=== PATIENT | male | born 1965 | race Two or more races ===

== ENCOUNTER 2019-11-15 08:32 | Emergency (ER) | payer SELFPAY ==
[~2019-11-15] VITALS: Ht 175.3 cm; Wt 112.6 kg
[2019-11-15 08:36] VITALS: Ht 175.3 cm; Wt 112.6 kg
[2019-11-15 11:37] VITALS: BP 123/78
[2019-11-16] MEDS ORDERED: FORTAMET1000 MG PO (19:31)
== END 2019-11-15 11:37 | disposition home or self-care (01) ==
LOC: ED 08:32
DX: R50.9 Fever, unspecified (principal); R51 Headache
CPT/HCPCS: 87804; Q0092

== ENCOUNTER 2019-11-16 17:09 | Inpatient (IN) | payer SELFPAY ==
[~2019-11-16] VITALS: Ht 175.3 cm; Wt 111.1 kg
[2019-11-16 17:31] VITALS: Ht 175.3 cm; Wt 111.1 kg
[2019-11-16 18:27] LABS: BASOPHIL % 0.1 % (0-2); PLATELET COUNT 276 x10^3mcL (130-400); RED CELL DISTRIBUTION WIDTH 13.5 % (11.5-14.5)
[2019-11-16 18:48] LABS: CALCIUM 9.4 mg/dL (8.5-10.1); CARBON DIOXIDE 25.4 mmol/L (21-32); CHLORIDE SERUM 96 mmol/L (98-107); GFR1 > 60 mL/min; GLUCOSE SERUM 269 mg/dL (74-106); POTASSIUM SERUM 3.9 mmol/L (3.5-5.1); SODIUM SERUM 132 mmol/L (136-145)
[2019-11-16 18:52] LABS: ALKALINE PHOSPHATASE 74 U/L (46-116); ALT/SGPT 75 U/L (16-63); AST/SGOT 55 U/L (15-37); BILIRUBIN TOTAL 0.4 mg/dL (0.20-1.00); TOTAL PROTEIN, SERUM 7.7 g/dL (6.4-8.2)
[2019-11-16 18:53] LABS: ALBUMIN 3.3 g/dL (3.4-5.0)
[2019-11-16 19:03] LABS: C REACTIVE PROTEIN 16.3 mg/dL (<=0.9)
[2019-11-16] MEDS ORDERED: FORTAMET1000 MG PO (19:31)
[2019-11-16 20:06] LABS: FREE T4 1.32 ng/dL (0.76-1.46); FREE THYROXINE INDEX 2.8 ug/dL (1.4-4.5); T4(THYROXINE) 7.6 ug/dL (4.7-13.3)
[2019-11-16 20:07] LABS: T3 TOTAL 0.86 ng/mL
[2019-11-16 20:21] LABS: CHOLESTEROL/HDL RATIO 3.7
[2019-11-16 20:41] VITALS: BP 152/109
[2019-11-17 06:05] VITALS: BP 151/96
[2019-11-17 07:18] LABS: BASOPHIL % 0.1 % (0-2); PLATELET COUNT 281 x10^3mcL (130-400); RED CELL DISTRIBUTION WIDTH 13.8 % (11.5-14.5)
[2019-11-17 07:26] LABS: CALCIUM 8.9 mg/dL (8.5-10.1); CARBON DIOXIDE 26.1 mmol/L (21-32); CHLORIDE SERUM 97 mmol/L (98-107); CREATININE SERUM 0.9 mg/dL (0.7-1.3); GFR1 > 60 mL/min; GLUCOSE SERUM 199 mg/dL (74-106); POTASSIUM SERUM 3.8 mmol/L (3.5-5.1); SODIUM SERUM 134 mmol/L (136-145)
[2019-11-17 09:00] VITALS: BP 148/90
[2019-11-17 17:43] VITALS: BP 154/91
[2019-11-17 19:07] LABS: UA SPECIFIC GRAVITY 1.025 (1.005-1.035); microscopic required? YES; urine erythrocyte TRACE (NEGATIVE)
[2019-11-18 05:59] VITALS: BP 150/93
[2019-11-18 06:56] LABS: BASOPHIL % 0.1 % (0-2); PLATELET COUNT 357 x10^3mcL (130-400); RED CELL DISTRIBUTION WIDTH 13.6 % (11.5-14.5)
[2019-11-18 07:07] LABS: CALCIUM 9.2 mg/dL (8.5-10.1); CARBON DIOXIDE 30.2 mmol/L (21-32); CHLORIDE SERUM 95 mmol/L (98-107); CREATININE SERUM 0.9 mg/dL (0.7-1.3); GFR1 > 60 mL/min; GLUCOSE SERUM 235 mg/dL (74-106); PHOSPHOROUS 2.8 mg/dL (2.5-4.9); POTASSIUM SERUM 3.9 mmol/L (3.5-5.1); SODIUM SERUM 134 mmol/L (136-145)
[2019-11-18 09:00] VITALS: BP 100/46
[2019-11-18 12:00] VITALS: BP 143/96
[2019-11-18 20:58] VITALS: BP 141/93
[2019-11-19 08:02] LABS: ALKALINE PHOSPHATASE 75 U/L (46-116); ALT/SGPT 130 U/L (16-63); AST/SGOT 100 U/L (15-37); BILIRUBIN TOTAL 0.4 mg/dL (0.20-1.00); CALCIUM 9.3 mg/dL (8.5-10.1); CARBON DIOXIDE 31.7 mmol/L (21-32); CHLORIDE SERUM 97 mmol/L (98-107); CREATININE SERUM 0.8 mg/dL (0.7-1.3); GFR1 > 60 mL/min; GLUCOSE SERUM 221 mg/dL (74-106); MAGNESIUM 2.1 mg/dL (1.8-2.4); PHOSPHOROUS 2.8 mg/dL (2.5-4.9); POTASSIUM SERUM 3.8 mmol/L (3.5-5.1); SODIUM SERUM 137 mmol/L (136-145); TOTAL PROTEIN, SERUM 7.4 g/dL (6.4-8.2)
[2019-11-19 08:04] LABS: ALBUMIN 2.7 g/dL (3.4-5.0)
[2019-11-19 09:04] LABS: PLATELET COUNT 407 x10^3mcL (130-400)
[2019-11-19 09:05] LABS: BASOPHIL % 0.2 % (0-2)
[2019-11-19 09:39] VITALS: BP 147/93
[2019-11-19 12:00] VITALS: BP 137/80
[2019-11-19 13:18] VITALS: BP 147/93
[2019-11-19 21:40] VITALS: BP 140/85
[2019-11-20 05:39] VITALS: BP 140/96
[2019-11-20 06:30] LABS: BASOPHIL % 0.4 % (0-2); RED CELL DISTRIBUTION WIDTH 13.7 % (11.5-14.5)
[2019-11-20 06:37] LABS: PLATELET COUNT 462 x10^3mcL (130-400)
[2019-11-20 07:03] LABS: ALKALINE PHOSPHATASE 77 U/L (46-116); ALT/SGPT 127 U/L (16-63); AST/SGOT 62 U/L (15-37); BILIRUBIN TOTAL 0.41 mg/dL (0.20-1.00); CALCIUM 9.1 mg/dL (8.5-10.1); CARBON DIOXIDE 31.5 mmol/L (21-32); CHLORIDE SERUM 99 mmol/L (98-107); CREATININE SERUM 0.8 mg/dL (0.7-1.3); GFR1 > 60 mL/min; GLUCOSE SERUM 195 mg/dL (74-106); MAGNESIUM 2.1 mg/dL (1.8-2.4); PHOSPHOROUS 3.1 mg/dL (2.5-4.9); POTASSIUM SERUM 3.5 mmol/L (3.5-5.1); SODIUM SERUM 137 mmol/L (136-145)
[2019-11-20 07:08] LABS: ALBUMIN 2.5 g/dL (3.4-5.0)
[2019-11-20 08:28] VITALS: BP 152/106
[2019-11-20 18:13] VITALS: BP 126/85
[2019-11-20 19:30] VITALS: BP 128/75
[2019-11-21 06:39] VITALS: BP 141/72
[2019-11-21 06:50] LABS: BASOPHIL % 0.4 % (0-2); RED CELL DISTRIBUTION WIDTH 13.9 % (11.5-14.5)
[2019-11-21 06:57] LABS: PLATELET COUNT 515 x10^3mcL (130-400)
[2019-11-21 07:41] LABS: ALKALINE PHOSPHATASE 83 U/L (46-116); ALT/SGPT 168 U/L (16-63); AST/SGOT 74 U/L (15-37); BILIRUBIN TOTAL 0.4 mg/dL (0.20-1.00); CALCIUM 9.5 mg/dL (8.5-10.1); CHLORIDE SERUM 99 mmol/L (98-107); CREATININE SERUM 0.9 mg/dL (0.7-1.3); GFR1 > 60 mL/min; GLUCOSE SERUM 94 mg/dL (74-106); MAGNESIUM 2.1 mg/dL (1.8-2.4); PHOSPHOROUS 3.5 mg/dL (2.5-4.9); POTASSIUM SERUM 3.3 mmol/L (3.5-5.1); SODIUM SERUM 140 mmol/L (136-145); TOTAL PROTEIN, SERUM 7.4 g/dL (6.4-8.2)
[2019-11-21 07:55] LABS: ALBUMIN 2.7 g/dL (3.4-5.0)
[2019-11-21 08:04] VITALS: BP 132/88
[2019-11-21 18:00] VITALS: BP 105/69
[2019-11-21 21:30] VITALS: BP 140/86
[2019-11-22 05:30] VITALS: BP 149/65
[2019-11-22 07:13] LABS: BASOPHIL % 0.4 % (0-2); RED CELL DISTRIBUTION WIDTH 13.3 % (11.5-14.5)
[2019-11-22 07:29] LABS: ALKALINE PHOSPHATASE 95 U/L (46-116); ALT/SGPT 185 U/L (16-63); AST/SGOT 78 U/L (15-37); BILIRUBIN TOTAL 0.39 mg/dL (0.20-1.00); CALCIUM 9.5 mg/dL (8.5-10.1); CARBON DIOXIDE 32.1 mmol/L (21-32); CHLORIDE SERUM 100 mmol/L (98-107); CREATININE SERUM 0.9 mg/dL (0.7-1.3); GFR1 > 60 mL/min; GLUCOSE SERUM 224 mg/dL (74-106); PHOSPHOROUS 2.8 mg/dL (2.5-4.9); POTASSIUM SERUM 4.1 mmol/L (3.5-5.1); SODIUM SERUM 138 mmol/L (136-145); TOTAL PROTEIN, SERUM 7.3 g/dL (6.4-8.2)
[2019-11-22 07:51] VITALS: BP 142/90
[2019-11-22 07:59] LABS: ALBUMIN 2.7 g/dL (3.4-5.0)
[2019-11-22 08:28] VITALS: BP 142/90
[2019-11-22 10:10] LABS: PLATELET COUNT 580 x10^3mcL (130-400)
[2019-11-22 13:03] VITALS: BP 140/61
[2019-11-22 18:13] VITALS: BP 141/80
[2019-11-22 21:13] VITALS: BP 134/96
[2019-11-23 06:00] VITALS: BP 119/87
[2019-11-23 06:19] LABS: BASOPHIL % 0.5 % (0-2); RED CELL DISTRIBUTION WIDTH 12.3 % (11.5-14.5)
[2019-11-23 06:36] LABS: ALKALINE PHOSPHATASE 82 U/L (46-116); ALT/SGPT 216 U/L (16-63); AST/SGOT 106 U/L (15-37); BILIRUBIN TOTAL 0.3 mg/dL (0.20-1.00); CALCIUM 9.3 mg/dL (8.5-10.1); CARBON DIOXIDE 31.7 mmol/L (21-32); CHLORIDE SERUM 101 mmol/L (98-107); GFR1 > 60 mL/min; GLUCOSE SERUM 184 mg/dL (74-106); PHOSPHOROUS 3.1 mg/dL (2.5-4.9); POTASSIUM SERUM 4.3 mmol/L (3.5-5.1); SODIUM SERUM 140 mmol/L (136-145)
[2019-11-23 06:39] LABS: ALBUMIN 2.7 g/dL (3.4-5.0)
[2019-11-23 06:51] LABS: PLATELET COUNT 590 x10^3mcL (130-400)
[2019-11-23 08:00] VITALS: BP 147/100
[2019-11-23 12:30] VITALS: BP 160/92
[2019-11-23 20:56] VITALS: BP 142/91
[2019-11-24 06:13] VITALS: BP 143/93
[2019-11-24 06:36] LABS: ALKALINE PHOSPHATASE 91 U/L (46-116); ALT/SGPT 275 U/L (16-63); AST/SGOT 112 U/L (15-37); BILIRUBIN TOTAL 0.34 mg/dL (0.20-1.00); CALCIUM 9.6 mg/dL (8.5-10.1); CARBON DIOXIDE 32.1 mmol/L (21-32); CHLORIDE SERUM 102 mmol/L (98-107); GFR1 > 60 mL/min; GLUCOSE SERUM 214 mg/dL (74-106); MAGNESIUM 2.1 mg/dL (1.8-2.4); POTASSIUM SERUM 4.4 mmol/L (3.5-5.1); SODIUM SERUM 139 mmol/L (136-145)
[2019-11-24 06:52] LABS: ALBUMIN 2.8 g/dL (3.4-5.0)
[2019-11-24 07:39] LABS: BASOPHIL % 0.4 % (0-2); RED CELL DISTRIBUTION WIDTH 13.1 % (11.5-14.5)
[2019-11-24 08:24] LABS: PLATELET COUNT 588 x10^3mcL (130-400)
[2019-11-24 08:37] VITALS: BP 135/86
[2019-11-24] MEDS ORDERED: LANTI SQ (09:53)
[2019-11-24 10:18] VITALS: BP 135/86
[2019-11-24 10:21] VITALS: BP 135/86
== END 2019-11-24 12:07 | disposition home or self-care (01) | DRG 177 ==
LOC: ED 17:09 → DU 19:15 → MU 11-22 12:41 → DU 11-23 17:07
PROVIDERS: Emergency Medicine; Internal Medicine; ADMIT Internal Medicine
DX: U07.1 COVID-19 (principal); J96.01 Acute respiratory failure with hypoxia; J12.89 Other viral pneumonia; E87.1 Hypo-osmolality and hyponatremia; E44.1 Mild protein-calorie malnutrition; E11.65 Type 2 diabetes mellitus with hyperglycemia; I10 Essential (primary) hypertension; E87.6 Hypokalemia; D47.3 Essential (hemorrhagic) thrombocythemia; R74.0 Nonspecific elevation of levels of transaminase and lactic acid dehydrogenase [LDH]; Z68.35 Body mass index [BMI] 35.0-35.9, adult; Z79.84 Long term (current) use of oral hypoglycemic drugs; Z83.3 Family history of diabetes mellitus; Z79.899 Other long term (current) drug therapy
CPT/HCPCS: 82962; 83880; 84439; 97116-GP; G0378; J0360; J0456; J0696; J1644; J1815; J1940; J7030; J7050; J7060; Q0092; U0002

== ENCOUNTER 2019-11-25 17:17 | Emergency (ER) | payer SELFPAY ==
[~2019-11-25] VITALS: Ht 175.3 cm; Wt 105.2 kg
[~2019-11-25 17:17] MED LIST: FORTAMET1000 MG PO; LANTI SQ
[2019-11-25 17:20] VITALS: BP 135/87; Ht 175.3 cm; Wt 105.2 kg
== END 2019-11-25 17:36 | disposition home or self-care (01) ==
LOC: ED 17:17
DX: J18.9 Pneumonia, unspecified organism (principal); B97.29 Other coronavirus as the cause of diseases classified elsewhere; U07.1 COVID-19

== ENCOUNTER 2019-11-30 12:55 | Emergency (ER) | payer SELFPAY ==
[~2019-11-30] VITALS: Ht 175.3 cm; Wt 110.2 kg
[2019-11-30 13:16] VITALS: BP 144/104; Ht 175.3 cm; Wt 110.2 kg
== END 2019-11-30 15:52 | disposition home or self-care (01) ==
LOC: ED 12:55
DX: F41.9 Anxiety disorder, unspecified (principal); E11.9 Type 2 diabetes mellitus without complications